=== PATIENT | female | born 1940 | race Caucasian/White ===

== ENCOUNTER 2016-09-16 06:18 | Inpatient (IN) | payer OTHER ==
--- NOTE | 2016-09-08 09:51 | GHP ---
[f rep st] PREOP HISTORY AND PHYSICAL DATE OF ADMISSION: 09/16/2016 PROBLEM: Left hip arthritis. HISTORY OF PRESENT ILLNESS: The patient is a 75-year-old woman with bilateral severe degenerative a rthritis. The left hip is more painful than the right. She has had progressive symptoms for 15 yea rs. In March 2016, she had stem cell injections into her hips and knees. That was helpful for h er hips for 3-4 months. She is having daily pain and night pain. It is painful to walk. She is tr elysia to exercise 3 times a week. Her hips are stiff and sore after sitting. She is using diclofena c. She has a lot of trouble putting on her shoes and socks. She has tried physical therapy for 1-1 /2 years, but it did not help. She is admitted for left total hip arthroplasty. She is planning on doing her right total hip later this year. PAST MEDICAL HISTORY: Overall, she is in excellent general health. Three years ago, she was worked up for premature atrial contractions. She is not having any current problems with that. No histor y of DVT, hepatitis, or sleep apnea. She has never had a serious previous MRSA infection. CURRENT MEDICATIONS: Diclofenac. She will stop that in preparation for her total hip replacement. DRUG ALLERGIES: She has a severe reaction to sulfa. METAL ALLERGY: None. LATEX ALLERGY: None. SOCIAL HISTORY: The patient is . She does not smoke cigarettes and rarely drinks alcohol. She is retired. She does not have any other artificial joints. FAMILY HISTORY: Positive for cancer. PHYSICAL EXAMINATION: GENERAL: She is a healthy-appearing woman. Height 5 feet 6 inches, weight 1 48 pounds, BMI 23.8. EYES: She has had bilateral cataract surgery with lens implants. The pupils are round and reactive. MOUTH: Good oral hygiene. No loose teeth. CHEST: Clear. HEART: Regula r rhythm. No murmurs. No arrhythmia. EXTREMITIES: Pertinent findings are limited to her hips. S he has full extension and about 60 degrees of flexion. There is no rotation or abduction. IMAGING: Her films show very severe degenerative arthritis of both hips. She is [id number]. She has extensive osteophyte formation. IMPRESSION ON ADMISSION: Bilateral hip degenerative arthritis. She is prepared for a left total hi p arthroplasty. The surgery has been described to her, including the risks, complications, expectations, and recover y time. I have discussed with her the risk of dislocation, leg length inequality, infection, and sc iatic nerve injury. I have advised her that if I lengthen her on the first hip, I will make up that length when I do her second hip. All her questions have been answered, and she consents to surgery . Copy requested to: [facility] /[id number]/MODL
[~2016-09-16 06:18] MED LIST: ACETAMINOPHEN 325 MG TAB PO ONE; CEFAZOLIN 2 GM/DEXTR 100 ML IV ONE; CHLORHEXIDINE GLUC HIBICLENS 118 ML BTL TP ONE; DEXAMETHASONE 4 MG/ML VIAL IVP ONE; FAMOTIDINE 20 MG TAB PO ONE; NS IV ONE; POVIDONE-IODINE 20 ML in SODIUM CL IRRIG SOLUTION 500 ML IRR ONE; ROPI/epiNEPH/KETOROLAC JOINT COCKTAIL IU ONE; TRANEXAMIC ACID IV ONE
[2016-09-16] MEDS ORDERED: FAMOTIDINE 20 MG TAB ONE (06:51)
[2016-09-16] MEDS ORDERED: CEFAZOLIN 2 GM/DEXTROSE/100 ML BAG IV ONE (07:01)
[2016-09-16] MEDS ORDERED: LIDOCAINE 1% 2 ML INJ ONE (07:02)
[2016-09-16] MEDS ORDERED: ceFAZolin 1 GM/5 ML SYR ONE (07:28)
[2016-09-16] MEDS ORDERED: fentaNYL 100 MCG/2 ML INJ ONE (07:30)
[2016-09-16] MEDS ORDERED: LIDOCAINE 2% 5 ML SDV ONE (07:31)
[2016-09-16] MEDS ORDERED: PROPOFOL/EMULSION 500 MG/50 ML BOTTLE IV ONE ×2 (07:31→09:17)
[2016-09-16] MEDS ORDERED: BUPIVACAINE 0.5% 30 ML SDV ONE (08:20)
[2016-09-16] MEDS ORDERED: PHENYLEPHRINE HCL 100 MCG/ML SYR ONE (09:39)
[2016-09-16] MEDS ORDERED: DIPHENOXYLATE/ATROPINE LOMOTIL 1 TAB PO PRN (10:16)
[2016-09-16] MEDS ORDERED: PROMETHAZINE HCL 25 MG SUPPR PR PRN (10:16)
[2016-09-16] MEDS ORDERED: NS 500 ML IV PRN (10:16)
[2016-09-16] MEDS ORDERED: ONDANSETRON 4 MG/2 ML VIAL IVP PRN (10:16)
[2016-09-16] MEDS ORDERED: traMADol 50 MG TAB PO PRN (10:16)
[2016-09-16] MEDS ORDERED: BISACODYL 10 MG SUPP PR PRN (10:16)
[2016-09-16] MEDS ORDERED: CYCLOBENZAPRINE 10 MG TAB PO PRN (10:16)
[2016-09-16] MEDS ORDERED: POLYETHYLENE GLYCOL 3350 17 GM PKT PO PRN (10:16)
[2016-09-16] MEDS ORDERED: PHARMACY PAIN CONSULT 1 EA MISC PRN (10:16)
[2016-09-16] MEDS ORDERED: diphenhydrAMINE 25 MG CAP PO PRN (10:16)
[2016-09-16] MEDS ORDERED: LACTULOSE 20 GM/30 ML UDCUP PO PRN (10:16)
[2016-09-16] MEDS ORDERED: MAGNESIUM HYDROXIDE 30 ML UDCUP PO PRN (10:16)
[2016-09-16] MEDS ORDERED: ONDANSETRON DISINTEGRATING 4 MG TAB PO PRN (10:16)
[2016-09-16] MEDS ORDERED: TEMAZEPAM 15 MG CAP PO PRN (10:16)
[2016-09-16] MEDS ORDERED: oxyCODONE IR 5 MG TAB PO PRN (10:16)
[2016-09-16] MEDS ORDERED: METOCLOPRAMIDE 10 MG/2 ML VIAL IVP PRN (10:16)
--- NOTE | 2016-09-16 10:17 | POSTOPPROG ---
Post Op Note Date of Operation: 09/16/16 Surgeon: Sherwin Han Shadow Graph Weight Operator: Dana Anesthesiologist: Zoë Anesthesia: IV Sedation, Spinal Post-op Diagnosis: left hip arthritis Procedure: left ZOË Inf/Abcess present in the surg proc area at time of surgery?: No EBL: 100-500
[2016-09-16] MEDS ORDERED: LR 1,000 ML IV SCH (10:30)
--- NOTE | 2016-09-16 11:06 | GOP ---
[f rep st] OPERATIVE REPORT DATE OF OPERATION: 09/16/2016 SURGEON: Sherwin Han MD INTERNSHIP: Ruiz Ch and Jose David Suazo. ANESTHESIA: A combination of Marcaine, spinal and IV sedation by Dr. Jono Camp. PREOPERATIVE DIAGNOSIS: Left hip severe degenerative arthritis. POSTOPERATIVE DIAGNOSIS: Left hip severe degenerative arthritis. PROCEDURE PERFORMED: FINDINGS: DESCRIPTION OF PROCEDURE: The patient was given 2 g of preoperative IV Ancef within 60 minutes of s urgery. She also received IV tranexamic acid at a dose of 20 mg/kg. She was placed on the [facility] g room table and given spinal anesthesia with Marcaine by Dr. Camp. She was then placed supine and given IV sedation. A Madsen catheter was not used. She wore a BHAVIK stocking and SCD on the nonopera tive leg. She was rolled to the right lateral decubitus position. The position was secured with e pegboard table attachment. An axillary roll was used and all pressure points were carefully padde d. I was careful to lock her pelvis in a rigid vertical position. Her perineum was isolated with p last adhesive drapes. The left hip and left lower extremity were prepped with ChloraPrep. They w ere draped free using sterile sheets, stockinette, and Ioban plastic drapes. The World Health Organization time-out was performed to verify the correct surgical side and site, a nd the correct patient identity. The Nikolai time-out was also performed. I made a 4-5 inch straight oblique posterolateral hip skin incision. This was a modified direct sup erior approach. Subcutaneous tissues were sharply divided and hemostasis was obtained using electro cautery. I split the very proximal portion of the fascia tamar along the axis of its fibers. I then curved posteriorly and proximally and split the fascia of the gluteus phu and bluntly split the muscle fibers in line with the orientation. A Charnley self-retaining retractor was inserted. Her sciatic nerve was located, partially exposed and protected throughout the procedure. The external rotators and the posterior hip capsule were divided as separate layers at the base of the femoral ne ck, tagged and reflected posteriorly. A smooth 8-inch Steinmann pin was inserted vertically into th e ilium superior to the acetabulum. An 8-inch drill bit was inserted vertically into the greater tr ochanter and parallel to the first pin. The distance between the 2 was measured for leg length cm cifuentes. Her femoral head was dislocated posteriorly. She had very severe degenerative changes in th e hip joint. Her femoral neck was osteotomized at the appropriate level and inclination. I was careful to preserve all the posterior capsule and most of the anterior capsule. The remnant o f her damaged labrum was excised. I prepared the femur first. This allowed me to enterprise mobility architect the amount of natural femoral neck anteversion . This, in turn, allowed me to later determine the correct amount of cup anteversion. She only had about 10 degrees of natural femoral neck anteversion. The canal was opened first laterally with a box chisel. I then reamed and broached sequentially up to size 9. The size 9 broach was used as a trial stem. I was careful to lateralize adequately. Appropriate retractors were inserted to expose the acetabulum. The acetabulum was reamed sequential ly up to 53 mm. I inserted a trial acetabular cup. I did a trial reduction with a flush liner and a -2.5 mm neck length with a 36 mm ball. I took a cross-table intraoperative AP pelvis x-ray. I wa s very satisfied with the leg length, as well as the sizing and position of the acetabular component and femoral component. I selected the Terrence Tritanium cluster hole hemispherical shell with an o utside diameter of 54 mm. This was tapped securely into place in the proper degree of inclination a nteversion. I used the transverse acetabular ligament and other acetabular bony landmarks to help m e properly orient the cup. I inserted a 30 mm and a 25 mm supplemental fixation screws. I also ins erted a screw in metal dome hole plug. I performed a series of trial reductions to determine length and stability. I confirmed that the si ze 9 stem with the -2.5 mm neck length with the 36 mm head with the flush trial liner gave me the pr oper combination of appropriate length and good anterior and posterior stability. The flush [place] X3 highly cross-linked polyethylene liner was inserted and tapped securely into place. I chose the Terrence Secur-Fit Max stem and a size 9 with standard offset. This was inserted press-fit and was very tight. I did 1 final trial reduction and confirmed that the -2.5 mm neck length with the 36 mm head was the proper combination. I inserted a [place]rence Biolox Delta ceramic head with an outside di ameter of 36 mm and a neck length of -2.5 mm. The acetabulum was irrigated and cleaned and the hip was reduced 1 final time. She had excellent anterior and posterior stability and appropriate length . I was intentionally lengthening her a small amount. This increased her stability and I am going to be doing her other hip in another 2 months and I will lengthen that a similar amount. 40 mL of the joint anesthetic cocktail were injected into the capsule, the deep musculature and the subcutaneous tissues along the skin edges. The joint was thoroughly irrigated 1 final time with a d ilute Betadine solution. Her sciatic nerve was reinspected and looked unharmed. The external rotat ors and the posterior hip capsule were repaired in separate layers with #2 FiberWire sutures through drill holes in the greater trochanter. This provided a strong posterior capsular and external rota tor repair. I put in a single [id number] #2 FiberWire sutures through her fascia tamar followed by a running #2 barbed Ethicon StrataFix PDO suture. The subcutaneous tissues were closed with a r unning 0 barbed Ethicon Stratafix Monoderm suture. The skin was closed with a running 3-0 barbed Et hicon Stratafix Monoderm subcuticular suture. The skin edges were reapproximated and sealed with De rmabond glue. The wound was covered with a strip of Telfa, and everything was held in place with a piece of clear plastic Tegaderm. A long-leg BHAVIK stocking and SCD were applied to her left lower extremity. She wore a stocking and S CD on the opposite side during the procedure. An abduction pillow was placed between her knees. Klaudia richardson was awakened from anesthesia and rolled to the supine position on her [facility]. She was ta robert to PACU in satisfactory condition. There were no recognized intraoperative complications. The estimated blood loss was about 300 mL. The sponge and needle count were correct on 2 occasions. I used a [place] Tritanium hemispherical press-fit cluster hole acetabular shell with an outside jonah meter of 54 mm. I used a 25 mm and a 30 mm supplemental fixation screws. The liner was a [place] X 3 flush highly cross-linked liner with an inside diameter of 36 mm. The femoral component was a sta ndard offset [place] Secur-Fit Max stem and a size 9 and press-fit. The femoral head was a [place] Biolox Delta ceramic head with a -2.5 mm neck length and a 36 mm outside diameter. Ruiz Ch and Jose David Suazo acted as surgical assistants. Their assistance was a anselmo bee. OPERATION PERFORMED: 09/16/2016: A left total hip arthroplasty, ceramic femoral head on highly microsoft solutions architect ss-linked polyethylene cup liner. Copy requested to: [facility] /[id number]/MODL
[2016-09-16] MEDS: ACETAMINOPHEN 325 MG TAB PO SCH ×2 (12:20→21:51)
[2016-09-16] MEDS: KETOROLAC 30 MG/1 ML SDV IVP PRN (15:02)
[2016-09-16] MEDS: ceFAZolin 2 GM/DEXTROSE 100 ML IV SCH (15:39)
[2016-09-16] MEDS: TRANEXAMIC ACID 650 MG TAB PO SCH (15:39)
[2016-09-16] MEDS: ASPIRIN 325 MG TAB PO SCH (21:55)
[2016-09-16] MEDS: FAMOTIDINE 20 MG TAB PO SCH (21:55)
[2016-09-16] MEDS: SENNOSIDES/DOCUSATE SODIUM TAB PO SCH (21:55)
[2016-09-16 23:45] VITALS: RESP 16
[2016-09-17] MEDS: ceFAZolin 2 GM/DEXTROSE 100 ML IV SCH (00:01)
[2016-09-17] MEDS: KETOROLAC 30 MG/1 ML SDV IVP PRN ×2 (01:07→08:52)
[2016-09-17 03:42] VITALS: TEMP 97.9
[2016-09-17 05:19] LABS: HEMATOCRIT 35.5 % (38.0-47.0); HEMOGLOBIN 12.2 g/dL (12.6-16.3)
[2016-09-17] MEDS: ACETAMINOPHEN 325 MG TAB PO SCH ×2 (06:08)
[2016-09-17 08:07] VITALS: BP 152/79; PULSE 79; O2SAT 95
[2016-09-17] MEDS: SENNOSIDES/DOCUSATE SODIUM TAB PO SCH (08:58)
[2016-09-17] MEDS: FAMOTIDINE 20 MG TAB PO SCH (08:59)
[2016-09-17] MEDS: ASPIRIN 325 MG TAB PO SCH (08:59)
[2016-09-17] MEDS: TRANEXAMIC ACID 650 MG TAB PO SCH ×2 (08:59)
[2016-09-17] MEDS ORDERED: CALCIUM CARB W/VIT D 500 MG TAB PO SCH (09:00)
[2016-09-17] MEDS ORDERED: FERROUS SULFATE 140 MG TAB.ER PO SCH (09:00)
[2016-09-17] MEDS ORDERED: CALCIUM CITRATE PO SCH (09:00)
[2016-09-17] MEDS ORDERED: Herbals/Supplements -Info Only PO SCH (09:00)
[2016-09-17] MEDS ORDERED: VIT D PO SCH (09:00)
[2016-09-17] MEDS ORDERED: CYANO/VITAMIN B12 1000 MCG TAB PO SCH (09:00)
[2016-09-17] MEDS ORDERED: CHOLECALCIFEROL VIT D3 2,000 UNITS TAB/CAP PO SCH (09:00)
--- NOTE | 2016-09-17 09:51 | SOAPPROG ---
SOAP Progress Note Assessment/Plan: Assessment: Afebrile. Awake and alert. Has been walking in [place] and has done stairs. Voiding well. Dsg is dry. H/H is good. Sciatic nerve intact. Films look good. Plan: DC today. 09/17/16 09:50 Objective: Vital Signs Temp Pulse Resp BP Pulse Ox 36.6 C 79 16 152/79 H 95 09/17/16 03:41 09/17/16 08:06 09/17/16 08:06 09/17/16 08:06 09/17/16 08:06 Laboratory Results 09/17/16 04:56 09/16/16 09/17/16 09/18/16 05:59 05:59 05:59 Intake Total 1540 Output Total 3400 Balance -1860 ICD10 Worksheet Patient Problems: Problems Problem Status Onset Osteoarthritis of left hip Acute
--- NOTE | 2016-09-17 10:18 | GDS ---
[f rep st] DISCHARGE SUMMARY ADMISSION DIAGNOSIS: Left hip arthritis. DISCHARGE DIAGNOSIS: Left hip arthritis. NAME OF PROCEDURE: 09/16/2016, a left total hip arthroplasty, ceramic femoral head on highly cross- linked polyethylene cup liner. POSTOPERATIVE COMPLICATIONS: None. CONDITION ON DISCHARGE: Improved. DESCRIPTION OF HOSPITAL COURSE: The patient was admitted to the hospital on the morning of surgery. Her admission CBC was normal. The same day, under a combination of Marcaine, spinal and IV sedati on, she underwent a left total hip arthroplasty. Postoperatively, she was treated with multimodal D VT prophylaxis including aspirin and early mobilization. On the first postoperative day, her hemogl obin and hematocrit were 12.2 and 35.5. She did not require any transfused blood. She was seen by Physical Therapy and made rapid progress with ambulation and stairs. By the time of discharge, she was afebrile, her wound was clean and dry, and she was independent and walking with a walker. DISPOSITION: The patient discharged to her home. She may progress to full weightbearing on the lef t as tolerated. Continue BHAVIK stockings for 1 week. Continue an abduction pillow in bed for 3 weeks . Continue aspirin 325 mg p.o. daily for 21 days. She has prescriptions for oxycodone and tramadol for pain control. I will see her back in the office on October 06, 2016. If there are any problems, s he is to call me at the office. Copy requested to: [facility] #: [id number]
== END 2016-09-17 11:30 | disposition home or self-care (01) | DRG 470 ==
LOC: F3N 06:18
PROVIDERS: ADMIT Orthopaedic Surgery; ATTEND Orthopaedic Surgery
PROC: 0SRB04Z Replacement of Left Hip Joint with Ceramic on Polyethylene Synthetic Substitute, Open Approach (ICD-10-PCS; principal; 2016-09-16 08:30)
DX: M16.12 Unilateral primary osteoarthritis, left hip (principal)
CPT/HCPCS: 97110-GP; 97116-GP; 97161-GP; 97165-GO; 97530-GP; C1713; G8978-GP-CJ; G8979-GP-CI; G8980-GP-CI; G8987-GO-CI; G8988-GO-CI; G8989-GO-CI; J0171; J0690; J1100; J1885; J2370; J2704; J2795; J3010

== ENCOUNTER 2016-10-17 10:30 | Observation (INO) | payer OTHER ==
--- NOTE | 2016-10-17 10:52 | CPEKG ---
Heart Rate: 92 RR Interval: 652 P-R Interval: 132 QRSD Interval: 76 QT Interval: 388 QTC Interval: 481 P Trenton: 63 QRS [place]on: 49 T Wave [place]on: -32 EKG Severity - ABNORMAL ECG - EKG Impression: SINUS RHYTHM EKG Impression: NONSPECIFIC T ABNORMALITIES, INFERIOR LEADS Electronically Signed By: Ajit Alcaraz 17-Oct-2016 15:14:51
[2016-10-17] MEDS ORDERED: NS 1,000 ML IV ONE ×3 (12:53→15:29)
--- NOTE | 2016-10-17 12:59 | EDPHY ---
H & P Time Seen by Provider: 10/17/16 11:50 HPI/ROS: HPI Syncope. 76-year-old female by ambulance. This patient was doing water aerobics. She reports that she had a recent left hip replacement. She reports she normally does water aerobics several times a week. She reports that last week she did her 1st water aerobics class after her hip surgery. She reports that yesterday she had some brief intermittent episodes of lightheadedness. She reports that she was at water aerobics, in the pool when she developed a sensation of lightheadedness. She got out of the pool, she went to the locker room, she had an episode of profuse watery diarrhea. She then was in the locker room and her symptoms worsen. She had 2 syncopal episodes while in in a locker room, the 2nd episode EMS was called the 1st episode a bystander witnessed this and she felt embarrassed until the bystander that she just slipped and fell. No associated chest pain, no associated shortness of breath, no palpitations, no headache. She denies any weakness or loss of sensation in her extremities. No other complaints. Is feeling better now. ROS: Constitutional: No fever, no chills. As above. Eyes: No discharge. No changes in vision. ENT: No sore throat. No nasal congestion or rhinorrhea. Respiratory: No cough. No shortness of breath. Cardiac: No chest pain, no palpitations. Gastrointestinal: No abdominal pain, no vomiting, no diarrhea. Genitourinary: No hematuria. No dysuria or increased frequency with urination. Musculoskeletal: No back pain. No neck pain. No myalgias or arthralgias. Skin: No rashes. Neurological: No headache. No focal weakness or altered sensation. Past medical history: History of PACs which has been resolved for some time. As above. Social history: Here with her . Nonsmoker. No alcohol. Physical Exam: General Appearance: Alert, no distress. This patient is responding to questions appropriately and in full sentences. This patient appears well- hydrated and well-nourished. Eyes: Pupils equal and round no pallor or injection. No lid edema, erythema or injection. No nystagmus. ENT, Mouth: Mucous membranes are moist. The pharyngeal tissues are unremarkable. No edema or swelling. No asymmetry suggestive of abscess. No erythema or exudates. No tongue lacerations or abrasions. Respiratory: There are no retractions, lungs are clear to auscultation with good air movement bilaterally. Cardiovascular: Regular rate and rhythm. No murmur. Gastrointestinal: Abdomen is soft and nontender, no masses, bowel sounds normal. No focal tenderness at McBurney's point. No Vásquez sign. Neurological: Motor sensory function is grossly intact. Cranial nerves are normal. Gait is normal. Skin: Warm and dry, no rashes. Musculoskeletal: Neck is supple and nontender. Extremities are symmetrical. All joints range without pain or impingement. Psychiatric: No agitation. No depression. Database: EKG: EKG time is 10:50 a.m.; EKG shows a narrow complex normal sinus rhythm with a ventricular rate of 92. The KS, QRS, QT intervals are within normal limits. There are no ST-T wave changes indicative of ischemic or injury pattern. No evidence of right heart strain. No evidence of WPW, Brugada syndrome, hypertrophic cardiomyopathy. Interpreted by me. Imaging: Procedures: Emergency department course: IV was placed. She was placed on a iron melter. She was started on IV normal saline with 1 L to be given over the next hour. EKG performed. Vital signs reviewed and are normal. 12:55 p.m., patient re-evaluated. Resting comfortably at this time. Up and ambulatory. States she feels slightly lightheaded when she stands up. Vital signs reviewed and are normal. 2:00 p.m., patient re-evaluated. Resting comfortably at this time. She remains asymptomatic. Diagnostic workup discussed with her and her . Plan for admission for observation reviewed. They are in agreement. All of their questions were answered. 2:05 p.m., case discussed with hospitalist. Patient accepted for telemetry observation admission. Patient admitted to Dr. Xenia Quinones of the hospitalist service. Patient admitted in stable condition. Differential Diagnosis: The differential diagnosis on this patient includes but is not limited to dehydration, enteritis, arrhythmia, noncardiac syncope. Acute coronary syndrome , pulmonary embolism, subarachnoid hemorrhage, CVA unlikely. This represents a partial list of diagnoses considered. These considerations are based on history , physical exam, past history, reassessment and diagnostic testing. Smoking Status: Never smoked Constitutional: Initial Vital Signs Temperature (C) 36.6 C 10/17/16 10:41 Heart Rate 94 10/17/16 10:41 Respiratory Rate 14 10/17/16 10:41 Blood Pressure 132/79 H 10/17/16 10:41 O2 Sat (%) 94 10/17/16 10:41 O2 Delivery Mode Room Air Allergies/Adverse Reactions: Sulfa (Sulfonamide Antibiotics) Allergy (Severe, Verified 08/19/16 14:06) Anaphylaxis walnut Allergy (Severe, Verified 08/19/16 14:06) Anaphylaxis Home Medications: Medication Instructions Recorded Calcium Citrate W/Vit D [Citracal 2 each PO DAILY 08/19/16 + D] Cholecalciferol Vit D3 [Vitamin D3 2,000 units PO DAILY 08/19/16 2000 units tab (OTC)] Cyanocobalamin [Vitamin B12 (*)] 1,000 mcg PO DAILY 08/19/16 Diclofenac Sodium [Voltaren-XR] 100 mg PO DAILY 08/19/16 Herbals/Supplements -Info Only 1 ea PO DAILY 08/19/16 Acetaminophen [Tylenol 325mg (*)] 650 mg PO Q6HRS #0 tab 09/17/16 Aspirin [Aspirin 325 mg (*)] 325 mg PO DAILY #21 tab 09/17/16 Ferrous Sulfate [Slow Fe 140 MG 140 mg PO DAILY #30 tab.er 09/17/16 (*)] Ondansetron Odt [Zofran Odt 4 mg 4 mg PO Q4HRS PRN #0 tab 09/17/16 (*)] oxyCODONE IR [Oxycodone Ir (*)] 5 - 10 mg PO Q3HRS PRN #0 tab 09/17/16 traMADol [Ultram 50 mg (*)] 50 mg PO Q6HRS PRN #0 tab 09/17/16 Medical Decision Making - Data Points Laboratory Results: Laboratory Results 10/17/16 10:40 10/17/16 10:40 10/17/16 10/17/16 10:40 10:40 WBC 6.87 10^3/uL 10^3/uL (3.80-9.50) RBC 4.97 10^6/uL 10^6/uL (4.18-5.33) Hgb 15.3 g/dL g/dL (12.6-16.3) Hct 47.0 % % (38.0-47.0) MCV 94.6 fL fL (81.5-99.8) MCH 30.8 pg pg (27.9-34.1) MCHC 32.6 g/dL g/dL (32.4-36.7) RDW 14.2 % % (11.5-15.2) Plt Count 250 10^3/uL 10^3/uL (150-400) MPV 11.7 fL fL (8.7-11.7) Neut % (Auto) 51.0 % % (39.3-74.2) Lymph % (Auto) 43.5 % % (15.0-45.0) [place] % (Auto) 3.6 % L % (4.5-13.0) Eos % (Auto) 1.3 % % (0.6-7.6) Baso % (Auto) 0.3 % % (0.3-1.7) Nucleat RBC Rel Count 0.0 % % (0.0-0.2) Absolute Neuts (auto) 3.50 10^3/uL 10^3/uL (1.70-6.50) Absolute Lymphs (auto) 2.99 10^3/uL 10^3/uL (1.00-3.00) Absolute Monos (auto) 0.25 10^3/uL L 10^3/uL (0.30-0.80) Absolute Eos (auto) 0.09 10^3/uL 10^3/uL (0.03-0.40) Absolute Basos (auto) 0.02 10^3/uL 10^3/uL (0.02-0.10) Absolute Nucleated RBC 0.00 10^3/uL 10^3/uL (0-0.01) Immature Gran % 0.3 % % (0.0-1.1) Immature Gran # 0.02 10^3/uL 10^3/uL (0.00-0.10) Sodium 143 mEq/L mEq/L (134-144) Potassium 3.9 mEq/L mEq/L (3.5-5.2) Chloride 102 mEq/L mEq/L (97-110) Carbon Dioxide 26 mEq/l mEq/l (22-31) Anion Gap 15 mEq/L mEq/L (8-16) BUN 15 mg/dL mg/dL (7-23) Creatinine 0.9 mg/dL mg/dL (0.6-1.0) Estimated GFR > 60 Glucose 137 mg/dL H mg/dL (70-100) Calcium 10.2 mg/dL mg/dL (8.5-10.4) Creatine Kinase 59 IU/L IU/L (0-156) CK-MB (CK-2) Fraction 1.04 ng/mL ng/mL (0-3.19) Troponin I < 0.012 ng/mL ng/mL (0-0.034) Medications Given: Discontinued Medications Sodium Chloride (Ns) 1,000 mls @ 0 mls/hr IV ONCE ONE PRN Reason: Wide Open Stop: 10/17/16 12:54 Last Admin: 10/17/16 12:57 Dose: 1,000 mls Departure - Departure Disposition: [facility] Inpatient Acute Clinical Impression: Syncope Referrals: AISHA REYNOLDS SENIOR MANAGER [Other] - As per Instructions
[2016-10-17 13:02] LABS: % IMMATURE GRANULYOCYTES 0.3 % (0.0-1.1); ABSOLUTE IMMATURE GRANULOCYTES 0.02 10^3/uL (0.00-0.10); ADD DIFF? NO; ADD MORPH? NO; ADD SCAN? NO; ATYPICAL LYMPHOCYTE FLAG 10 (0-99); FRAGMENT RBC FLAG 0 (0-99); HEMOGLOBIN 15.3 g/dL (12.6-16.3); LEFT SHIFT FLG 10 (0-99); LIPEMIA HEMOLYSIS FLAG 80 (0-99); MEAN CELL HEMOGLOBIN 30.8 pg (27.9-34.1); MEAN CELL HEMOGLOBIN CONCENTR. 32.6 g/dL (32.4-36.7); MEAN CELL VOLUME 94.6 fL (81.5-99.8); MEAN PLATELET VOLUME 11.7 fL (8.7-11.7); PLATELET CLUMPS FLAG 0 (0-99); PLATELET COUNT 250 10^3/uL (150-400); RED BLOOD CELL COUNT 4.97 10^6/uL (4.18-5.33); RED CELL DISTRIBUTION WIDTH 14.2 % (11.5-15.2)
[2016-10-17 13:05] LABS: ANION GAP 15 mEq/L (8-16); CALCIUM 10.2 mg/dL (8.5-10.4); CARBON DIOXIDE 26 mEq/l (22-31); CHLORIDE 102 mEq/L (97-110); CREATININE 0.9 mg/dL (0.6-1.0); GLOMERULAR FILTRATION RATE > 60; GLUCOSE 137 mg/dL (70-100); POTASSIUM 3.9 mEq/L (3.5-5.2); SODIUM 143 mEq/L (134-144)
[2016-10-17 13:16] LABS: CREATINE KINASE-MB FRACTION 1.04 ng/mL (0-3.19); TROPONIN I < 0.012 ng/mL (0-0.034)
[2016-10-17] MEDS ORDERED: ACETAMINOPHEN 325 MG TAB PO PRN (14:39)
[2016-10-17] MEDS ORDERED: ONDANSETRON 4 MG/2 ML VIAL IVP PRN (14:39)
[2016-10-17] MEDS ORDERED: ONDANSETRON DISINTEGRATING 4 MG TAB PO PRN (14:39)
--- NOTE | 2016-10-17 15:51 | GHP ---
[f rep st] HISTORY AND PHYSICAL DATE OF ADMISSION: 10/17/2016 CHIEF COMPLAINT: Syncope. HISTORY OF PRESENT ILLNESS: A 76-year-old female, with limited past medical history to arthritis of bilateral hips with a hip replacement on the left on 09/17/2016. Patient has been doing very well postoperatively, and was at her water aerobics class today when she began feeling a little bit dizzy . She got out of the pool, walked into the changing room, had some abdominal discomfort and nausea, took a lactate and then passed a voluminous watery stool, with then complete resolution of her disc omfort and nausea, and then the patient sat down on a bench and . Got up again, was sitti ng, still feeling dizzy, and then had a second syncopal episode, was then transported by EMS to the emergency department. Patient denies any preceding palpitations, chest pain, shortness of breath, v ision changes, headache. Did have the mild nausea and the one large stool that she likens to stool that she has when she inappropriately takes lactose-containing products. Otherwise denies any fever s, denies any blood in her stool or her urine. Denies dysuria, denies any unusual foods, exposures to food allergies or known sick contacts. PAST MEDICAL HISTORY: 1. Bilateral hip arthritis. 2. Status post left hip arthroplasty, 09/17/2016. SOCIAL HISTORY: Negative for tobacco, very rare alcohol, no illicit drugs or marijuana. FAMILY HISTORY: Positive for hip and knee arthritis in her mother. REVIEW OF SYSTEMS: A 10-point review of systems is negative with the exception of that reported in the HPI. PHYSICAL EXAMINATION: VITAL SIGNS: Blood pressure 149/88, heart rate 84, respiratory rate 14, satu rating 97% on room air, 36.6. GENERAL: This is a very healthy-appearing middle-aged female in no a cute distress. HEENT: Notable for dry mucous membranes. Eye exam is negative for any icterus. CA RDIAC: Patient is regular rate and rhythm, a quiet systolic murmur is appreciated. PULMONARY: Zelalem ar to auscultation bilaterally. GASTROINTESTINAL: Positive bowel sounds. ABDOMEN: Soft, nontende r in all 4 quadrants. MUSCULOSKELETAL: Negative for any lower extremity edema. SKIN: Negative fo r any rashes. NEUROLOGIC: She is alert and oriented x3. PSYCHIATRIC: She is pleasant and coopera tive on interview and examination. ADVANCED DIRECTIVES: Patient is full cor, full tube. LABORATORY DATA: Telemetry, which I personally reviewed and interpreted, shows sinus rhythm in the 80s with no premature complexes or abnormalities. White count 6.8, creatinine 0.9. Troponin less than 0.012. EKG, which I personally reviewed and interpreted, shows sinus rhythm, normal axis, normal intervals, with no acute ST-T changes. ASSESSMENT AND PLAN: This is a 76-year-old female presenting with syncope. 1. Acute syncope. Patient does not have prodrome or concerning medical history. My greatest suspi cion is either from micturitional type syncope and/or hypovolemia. We will complete a rule-out this afternoon, monitor the patient on telemetry. I do hear a quiet murmur, we will order a transthorac ic echocardiogram, and a urinalysis to look for both concentration and/or an occult urinary tract in fection. If the patient has normal diagnostic workup, I believe she is safe to discharge with outpa tient followup. She has received 1 L of normal saline in the emergency department and has not urina todd, I will repeat this L, and then allow her to take a normal diet. 2. Status post left hip arthroplasty. The patient's recovery is going very smoothly. She is on Ty lenol only, and has been so for over 3 weeks. I do not suspect the pain medications are contributin g to her presentation, continue encouraging her ambulation per her preceding instructions by her pamela schulten. Prophylaxis with Lovenox. DIET: Regular. DISPOSITION: I expect a less than 2 midnight stay since the patient has a negative diagnostic lester p. I discussed the case with the emergency room physician. Patient will be triaged to the E[facility]U for syn cope. /[id number]/MODL
[2016-10-17 16:20] LABS: COLOR YELLOW; LEUKOCYTE ESTERASE,URINE NEGATIVE (NEGATIVE); NITRITE,URINE NEGATIVE (NEGATIVE)
[2016-10-17] MEDS ORDERED: ACETAMINOPHEN 325 MG TAB PO SCH (18:00)
[2016-10-17] MEDS: ACETAMINOPHEN 325 MG TAB PO PRN (20:11)
[2016-10-18] MEDS: ACETAMINOPHEN 325 MG TAB PO PRN ×3 (00:19→11:05)
[2016-10-18 05:58] LABS: ANION GAP 7 mEq/L (8-16); CALCIUM 8.9 mg/dL (8.5-10.4); CARBON DIOXIDE 24 mEq/l (22-31); CHLORIDE 113 mEq/L (97-110); CREATININE 0.6 mg/dL (0.6-1.0); GLOMERULAR FILTRATION RATE > 60; GLUCOSE 84 mg/dL (70-100); POTASSIUM 3.7 mEq/L (3.5-5.2); SODIUM 144 mEq/L (134-144)
[2016-10-18] MEDS ORDERED: CHOLECALCIFEROL VIT D3 2,000 UNITS TAB/CAP PO SCH (09:00)
[2016-10-18] MEDS ORDERED: CYANO/VITAMIN B12 1000 MCG TAB PO SCH (09:00)
[2016-10-18] MEDS ORDERED: Herbals/Supplements -Info Only PO SCH (09:00)
[2016-10-18] MEDS: ENOXAPARIN 40 MG/0.4 ML SYR SC SCH ×2 (11:05→11:44)
[2016-10-18 11:34] VITALS: BP 128/78; PULSE 74; RESP 16; TEMP 98.4; O2SAT 92
--- NOTE | 2016-10-18 12:19 | ECHO ---
[id number] + + [id number] : : [place] [id number] : : [phone] + + Adult Echocardiographic Report + -------+ :Name: Chanel MALDONADO Date: 10/18/2016 10:18 AM BP: 136/90 mmH g : : Hospital Admission Number: [id number] Locati on: 142: :: 1940 Gender: Female Height: 66 in : :Age: 76 yrs Race: WH Weight: 146 lb : :Reason For Study: syncope : : BSA: 1.7 meter s2 : :History: syncope : + -------+ MMode/2D Measurements \T\ Calculations IVSd: 0.85 cm RVDd: 2.8 cm FS: 26.8 % Ao root diam: LVPWd: 0.94 cm LVIDd: 4.3 cm EDV(Teich): 2.4 cm LVIDs: 3.1 cm 82.6 ml LA dimension: ESV(Teich): 3.1 cm 39.1 ml EF(Teich): 52.6 % LVLd ap4: 8.1 cm SV(MOD-sp4): EDV(MOD-sp4): 58.0 ml 109.0 ml LVLs ap4: 7.1 cm ESV(MOD-sp4): 51.0 ml EF(MOD-sp4): 53.2 % Normal Measurement Values: + + :LVIDd (3.5-5.7cm) IVSd (0.6-1.1cm) LVPWd (0.6-1.1cm) Aortic Root (2.0-3.7cm)Left Atrium (1.5-4.0cm): :LV Vol(d) (76-115ml) LV Vol(s) (29-48ml) Ejec Fraction (50-65%)PV Marcell (0.6- 1.2m/s) TV Marcell (0.4-1.0m/s) : :MV E Marcell (0.8-1.0m/s)MV A Marcell (0.3-1.0m/s)LVOT Marcell (0.7-1.2m/s) Asc Ao Marcell ( 0.9-1.8m/s) : + + Doppler Measurements \T\ Calculations MV E max marcell: Ao V2 max: LV V1 max: PA V2 max: 76.5 cm/sec 129.0 cm/sec 93.8 cm/sec 86.9 cm/sec MV A max marcell: Ao max P.7 mmHgLV V1 max PG: PA max P.3 cm/sec 3.5 mmHg 3.0 mmHg MV E/A: 0.82 TR max marcell: 220.0 cm/sec TR max P.4 mmHg RAP systole: 10.0 mmHg RVSP(TR): 29.4 mmHg Left Ventricle The left ventricle is normal in size and function. There is normal left ventricular wall thickness. Ejection Fraction = 55-60%. There is Doppler evidence for diastolic dysfunction. No regional wall motion abnormalities noted. Right Ventricle The right ventricle is normal in size and function. Atria The left atrial size is normal. Right atrial size is normal. A dilated inferior vena cava suggests increased right atrial pressure. Mitral Valve The mitral valve is normal in structure and function. There is no mitral valve stenosis. There is mild mitral regurgitation. Tricuspid Valve The tricuspid valve is normal in structure and function. There is no tricuspid stenosis. There is mild tricuspid regurgitation. Right ventricular systolic pressure is 30mmHg. Aortic Valve The aortic valve is trileaflet. There is no aortic stenosis. There is no aortic insufficiency. Pulmonic Valve The pulmonic valve is not well visualized. Great Vessels The aortic root is normal size. Pericardium/Pleural There is no pericardial effusion. Conclusion A two-dimensional transthoracic echocardiogram with M-mode and Doppler was performed. The left ventricle is normal in size and function. Normal wall motion. Ejection Fraction = 55-60%. Grade I diastolic dysfunction. Normal appearing valves. There is mild mitral regurgitation. There is mild tricuspid regurgitation. Right ventricular systolic pressure is 30mmHg. Final Reading Physician: Frederick Pemberton signed on 10/18/2016 12:18 PM Ordering Physician: Xenia Quinones Performed By: Nova Noel
[2016-10-18] MEDS ORDERED: IOPAMIDOL (ISOVUE 370) 100 ML BTL IV ONE (12:42)
--- NOTE | 2016-10-19 06:10 | GDS ---
[f rep st] DISCHARGE SUMMARY DISCHARGE DIAGNOSES: 1. Syncope, which is likely related to vagal event versus orthostasis. 2. Status post left hip arthroplasty. IMAGING STUDIES/PROCEDURES: Echocardiogram October 18, 2016 showed a normal wall motion with an ejectio n fraction of 55%-60%. Grade 1 diastolic dysfunction. Normal valves. Mild mitral regurgitation. The right ventricular systolic pressure of 32. HISTORY: For details, please see dictated history and physical dated October 17, 2016. In brief, the luis m wall is a 76-year-old female who is 3 weeks postop from a total hip arthroplasty who presents to [facility] emergency department after syncopal event. Her syncope occurred after swimming in the pool. She developed some abdominal discomfort, nausea, then had a copious watery stool. After this occurred, she passed out. She tried to get up but again felt dizzy and had a 2nd syncopal episode. She is a dmitted to the hospital for further management. HOSPITAL COURSE: Patient is admitted to the observation unit. She received a total of 3 L of kristian l saline. Orthostatics were negative prior to discharge. She was monitored on telemetry and was no todd to have some very brief runs of what looks like paroxysmal atrial tachycardia. I do not think t was a source of syncope. She does report a history of atrial tachycardia for which she was meri todd in the past. An echo was ordered and shows normal valves and no other source of syncope. A D-d don was markedly elevated at 8.9, CT angiogram was negative for pulmonary embolism. DISPOSITION: Patient is discharged home in stable condition with instructions to follow up with her cashier office for possible Holter monitor. FOLLOW UP: 1. Dr. Barahona her outpatient cashier office. DISCHARGE MEDICATIONS: Please see [employer] for complete updated outpatient medication list. There are no new medications on discharge. /[id number]/MODL
== END 2016-10-18 17:30 | disposition home or self-care (01) ==
LOC: EDUNIT# → F1N 16:28
PROVIDERS: ADMIT Hospitalist; ATTEND Hospitalist
DX: R55 Syncope and collapse (principal); I34.0 Nonrheumatic mitral (valve) insufficiency; I48.0 Paroxysmal atrial fibrillation; R01.1 Cardiac murmur, unspecified; Z96.642 Presence of left artificial hip joint; Z86.79 Personal history of other diseases of the circulatory system
CPT/HCPCS: 71275; 93005; 93306; 96360; 99285; G0378; J1650; Q9967

== ENCOUNTER 2016-11-05 07:48 | Inpatient (IN) | payer OTHER ==
--- NOTE | 2016-11-03 09:32 | GHP ---
[f rep st] PREOP HISTORY AND PHYSICAL DATE OF ADMISSION: 11/05/2016 PROBLEM: Right hip arthritis. HISTORY OF PRESENT ILLNESS: The patient is a 76-year-old woman with a history of severe bilateral hip degenerative arthritis. She has had progressive symptoms for the past 15 years. In March 2016, she had stem cells injected into both her hips and her knees. That was helpful for a few months. She is having daily pain and night pain. It is painful to walk. Her hips are stiff and sore after sitting. She has used diclofenac in the past. She has trouble putting on her shoes and socks. She has tried physical therapy but it did not help. She underwent a left total hip arthroplasty on September 16, 2016, with an excellent result. She is admitted at this time for a right total hip arthroplasty. PAST MEDICAL HISTORY: Overall, she is in excellent health. Three years ago, she was worked up for premature atrial contractions. Two weeks ago, she had a syncopal episode. She was hospitalized and again worked up. It was concluded that she had a syncope from dehydration. She had a cardiac stress test which was negative. No history of DVT, hepatitis, or sleep apnea. CURRENT MEDICATIONS: None. DRUG ALLERGIES: She had a severe reaction to sulfa. Metal allergy: None. Latex allergy: None. SOCIAL HISTORY: The patient is . She does not smoke cigarettes and rarely drinks alcohol. She is retired. FAMILY HISTORY: Positive for cancer. PHYSICAL EXAMINATION: GENERAL: She is a healthy-appearing woman. Height 5 feet 6 inches. Weight 148 pounds. BMI 23.8. EYES: Conjunctivae and sclerae are clear. She has had bilateral cataract surgery with lens implants. MOUTH: Good oral hygiene. No loose teeth. CHEST: Clear. HEART: Regular rhythm. No murmurs. No arrhythmia. EXTREMITIES: Pertinent findings are limited to her right hip. She has full hip extension and 60 degrees of flexion. No rotation or abduction. IMAGING: Her films show severe degenerative arthritis in her right hip. She is bone on bone. Extensive osteophyte formation is present. Her left total hip arthroplasty looks excellent. IMPRESSION ON ADMISSION: 1. Right hip advanced degenerative arthritis. 2. Seven weeks status post successful left total hip arthroplasty. 3. Recent syncopal episode with no cardiac origin identified. PLAN: She will undergo a right total hip arthroplasty. The surgery has been described to her, including the risks, complications, expectations, and recovery time. I have discussed with her the issues of leg length inequality, dislocation, infection, and sciatic nerve injury. I have also advised her that with bilateral procedures there can be mild [id number] differences in the recovery and in the final result. All her questions have been answered, and she consents to surgery. /[id number]/MODL MTDD
[~2016-11-05 07:48] MED LIST changes: -CHLORHEXIDINE GLUC HIBICLENS 118 ML BTL TP ONE; +ROPI/epINEPH/KETOROLAC IU ONE; -ROPI/epiNEPH/KETOROLAC JOINT COCKTAIL IU ONE
[2016-11-05] MEDS ORDERED: ceFAZolin 1 GM/5 ML SYR ONE (07:57)
[2016-11-05] MEDS ORDERED: LIDOCAINE 1% 5 ML SDV ID PRN (08:25)
[2016-11-05] MEDS ORDERED: LR 1,000 ML IV ONE (08:25)
[2016-11-05] MEDS ORDERED: CEFAZOLIN 2 GM/DEXTROSE/100 ML BAG IV ONE (08:50)
[2016-11-05] MEDS ORDERED: ACETAMINOPHEN 325 MG TAB ONE (08:50)
[2016-11-05] MEDS ORDERED: FAMOTIDINE 20 MG TAB ONE (08:50)
[2016-11-05] MEDS ORDERED: DEXAMETHASONE 4 MG/ML VIAL ONE (08:50)
--- NOTE | 2016-11-05 09:00 | PDHPUP ---
History & Physical Update H&P update statement: This history and physical update is based on an assessment of the patient which was completed after admission or registration (within 24 hours), but prior to the surgery/procedure. H&P update: H&P reviewed & patient examined, no change in patient's condition since H&P completed
--- NOTE | 2016-11-05 09:36 | PDANEPAE ---
ANE History of Present Illness Osteoarthritis ANE Past Medical History - Cardiovascular History Hx Hypertension: No Hx Arrhythmias: No Hx Chest Pain: No Hx Coronary Artery / Peripheral Vascular Disease: No Hx CHF / Valvular Disease: No Hx Palpitations: No - Pulmonary History Hx COPD: No Hx Asthma/Reactive Airway Disease: No Hx Recent Upper Respiratory Infection: No Hx Oxygen in Use at Home: No - Neurologic History Hx Cerebrovascular Accident: No Hx Seizures: No Hx Dementia: No - Endocrine History Hx Diabetes: No - Renal History Hx Renal Disorders: No - Liver History Hx Hepatic Disorders: No - Neurological & Psychiatric Hx Hx Neurological and Psychiatric Disorders: No - Congenital Disorder History Hx Congenital Disorders: No - GI History Hx Gastrointestinal Disorders: No - Chronic Pain History Chronic Pain: Yes (RIGHT HIP) ANE Review of Systems - Exercise capacity METS (RN): 4 METS - Systems Neurological: Reports: other (Fainted while exercising a couple of weeks ago. Negative workup--attributed to dehydration.) ANE Patient History - Allergies Allergies/Adverse Reactions: Sulfa (Sulfonamide Antibiotics) Allergy (Severe, Verified 08/19/16 14:06) Anaphylaxis walnut Allergy (Severe, Verified 08/19/16 14:06) Anaphylaxis - Home Medications Home Medications: Cholecalciferol Vit D3 [Vitamin D3 2000 units tab (OTC)] 2,000 units PO DAILY [Last Taken 10/29/16] Cyanocobalamin [Vitamin B12 (*)] 1,000 mcg PO DAILY 08/19/16 [Last Taken ] Acetaminophen [Tylenol 325mg (*)] 325 mg PO 5XD 10/17/16 [Last Taken 11/05/16 06 :30] Herbals/Supplements -Info Only 1 ea PO DAILY 10/17/16 [Last Taken 10/29/16] - NPO status NPO Since - Liquids (Date): 11/04/16 NPO Since - Liquids (Time): 22:00 NPO Since - Solids (Date): 11/04/16 NPO Since - Solids (Time): 19:00 - Smoking Hx Smoking Status: Never smoked - Family Anes Hx Family Hx Anesthesia Complications: NONE ANE Labs/Vital Signs - Vital Signs Blood Pressure: 177/90 Heart Rate: 80 Respiratory Rate: 16 O2 Sat (%): 98 Height: 167.64 cm Weight: 66.315 kg
[2016-11-05] MEDS ORDERED: fentaNYL 100 MCG/2 ML INJ ONE ×3 (09:41→12:26)
[2016-11-05] MEDS ORDERED: PROPOFOL/EMULSION 500 MG/50 ML BOTTLE IV ONE (09:41)
[2016-11-05] MEDS ORDERED: KETAMINE 100 MG/10 ML SYR ONE (10:08)
[2016-11-05] MEDS ORDERED: ONDANSETRON 4 MG/2 ML VIAL IVP PRN ×2 (10:13→11:52)
[2016-11-05] MEDS ORDERED: DEXAMETHASONE 4 MG/ML VIAL IVP PRN (10:13)
[2016-11-05] MEDS ORDERED: ENALAPRILAT DIHYDRATE 1.25 MG/ML VIAL IVP PRN (10:13)
[2016-11-05] MEDS ORDERED: OXYCODONE/APAP 5/325 TAB PO PRN (10:13)
[2016-11-05] MEDS ORDERED: MEPERIDINE 25 MG/ML SYR IVP PRN (10:13)
[2016-11-05] MEDS ORDERED: LR 500 ML IV PRN (10:13)
[2016-11-05] MEDS ORDERED: METOCLOPRAMIDE 10 MG/2 ML VIAL IVP PRN ×2 (10:13→11:52)
[2016-11-05] MEDS ORDERED: NALOXONE HCL 0.4 MG/ML INJ IVP PRN (10:13)
[2016-11-05] MEDS ORDERED: LABETALOL HCL 5 MG/ML 20 ML MDV IVP PRN (10:13)
[2016-11-05] MEDS ORDERED: HYDROmorphONE/DILAUDID 1 MG/ML SYR IVP PRN (10:13)
[2016-11-05] MEDS ORDERED: ACETAMINOPHEN 500 MG TAB PO PRN (10:13)
[2016-11-05] MEDS ORDERED: PROMETHAZINE HCL 25 MG/ML INJ IVP PRN ×2 (10:13→11:52)
--- NOTE | 2016-11-05 11:38 | POSTOPPROG ---
Post Op Note Date of Operation: 11/05/16 Surgeon: Sherwin Han Lead Nuclear Medicine Technologist: Dima/Gabriele Anesthesiologist: Jolanta Anesthesia: IV Sedation, Spinal Post-op Diagnosis: R hip arthritis Procedure: R ZOË Inf/Abcess present in the surg proc area at time of surgery?: No EBL: 100-500
[2016-11-05] MEDS ORDERED: NS 500 ML IV PRN (11:52)
[2016-11-05] MEDS ORDERED: TEMAZEPAM 15 MG CAP PO PRN (11:52)
[2016-11-05] MEDS ORDERED: MAGNESIUM HYDROXIDE 30 ML UDCUP PO PRN (11:52)
[2016-11-05] MEDS ORDERED: BISACODYL 10 MG SUPP PR PRN (11:52)
[2016-11-05] MEDS ORDERED: LACTULOSE 20 GM/30 ML UDCUP PO PRN (11:52)
[2016-11-05] MEDS ORDERED: diphenhydrAMINE 25 MG CAP PO PRN (11:52)
[2016-11-05] MEDS ORDERED: ONDANSETRON DISINTEGRATING 4 MG TAB PO PRN (11:52)
[2016-11-05] MEDS ORDERED: CYCLOBENZAPRINE 10 MG TAB PO PRN (11:52)
[2016-11-05] MEDS ORDERED: POLYETHYLENE GLYCOL 3350 17 GM PKT PO PRN (11:52)
[2016-11-05] MEDS ORDERED: PHARMACY PAIN CONSULT 1 EA MISC PRN (11:52)
[2016-11-05] MEDS ORDERED: PROMETHAZINE HCL 25 MG SUPPR PR PRN (11:52)
[2016-11-05] MEDS ORDERED: KETOROLAC 30 MG/1 ML SDV IVP PRN (11:52)
[2016-11-05] MEDS ORDERED: DIPHENOXYLATE/ATROPINE LOMOTIL 1 TAB PO PRN (11:52)
[2016-11-05] MEDS ORDERED: LR 1,000 ML IV SCH (12:00)
[2016-11-05] MEDS: fentaNYL 100 MCG/2 ML INJ IVP PRN ×3 (12:08→12:33)
[2016-11-05] MEDS ORDERED: HYDROmorphONE/DILAUDID 2 MG/ML INJ ONE (12:22)
[2016-11-05] MEDS ORDERED: LABETALOL HCL 50 MG/10 ML SYR ONE (12:23)
--- NOTE | 2016-11-05 13:30 | GOP ---
[f rep st] OPERATIVE REPORT DATE OF OPERATION: 11/05/2016 SURGEON: Sherwin Han MD SUBSTATION ELECTRICIAN: Lorenzo Ch PA-C and Jose David Suazo CFA. ANESTHESIA: Combination of Marcaine, spinal, and IV sedation. ANESTHESIOLOGIST: By Andrew Stover MD. PREOPERATIVE DIAGNOSIS: Right hip severe degenerative arthritis. POSTOPERATIVE DIAGNOSIS: Right hip severe degenerative arthritis. PROCEDURE PERFORMED: 11/05/2016, a right total hip arthroplasty, ceramic femoral head on highly crop specialist ss-linked polyethylene cup liner. FINDINGS: DESCRIPTION OF PROCEDURE: The patient was given 2 g of IV Ancef preoperatively within 60 minutes of surgery. She also received IV tranexamic acid at a dose of 20 mg/kg. She was placed on the operat ing room table and given spinal anesthesia with Marcaine by Dr. Stover. She was then placed supine a nd given IV sedation. A Madsen catheter was not used. She wore a BHAVIK stocking and SCD on the nonope rative leg. She was rolled to the left lateral decubitus position. The position was secured with t he pegboard table attachment. I was careful to lock her pelvis in a rigid vertical position. Her p erineum was isolated with plastic adhesive drapes. The right hip and right lower extremity were pre pped with ChloraPrep. They were draped free using sterile sheets, stockinette, and Teresaban plastic dr zhu. The [employer] Organization time-out was performed to verify the correct surgical side and the cor rect patient identity. The [place] time-out was also performed. I made a 4-5 inch straight, oblique posterolateral skin incision. Subcutaneous tissues were sharply divided, and hemostasis was obtained using electrocautery. Her fascia tamar was identified and spli t along the axis of its fibers. I then curved posteriorly and proximally and split the fascia of th e gluteus phu and bluntly split the muscle fibers in line with their orientation. I was careful to extend into the tensor fascia tamar only a short distance. The Charnley self-retaining retractor was inserted. Her sciatic nerve was located, partially exposed, and protected throughout the proce dure. The external rotators, and the posterior hip capsule were divided as separate layers at the b ase of the femoral neck, tagged, and reflected posteriorly. A smooth 8-inch Steinmann pin was inser bhavik vertically into the ilium, superior to the acetabulum. An 8-inch drill bit was inserted vertica lly into the greater trochanter and parallel to the first pin. The distance between the 2 was measu red for leg length reference. The femoral head was dislocated posteriorly. Severe degenerative jaylin nges were present on the femoral head. Her femoral neck was osteotomized at the appropriate level a nd inclination. She had a lot of osteophytes around the periphery of her femoral neck distal to the osteotomy. These were trimmed with a rongeur. I was careful to preserve all the posterior capsule and most of the anterior capsule. Her remnant w as absent, and she had extensive peripheral osteophytes around the rim of her acetabulum. I prepared the femur first. This allowed me to legal job titles the amount of natural femoral neck anteversion . This in turn, allowed me to later determine the correct amount of cup anteversion. She had appro ximately 10 degrees of natural femoral neck anteversion. Her canal was opened laterally with a box chisel. I reamed and broached sequentially up to a size 9. I used a size 9 broach as a trial stem. I was careful to lateralize adequately. Appropriate retractors were inserted to expose her acetabulum. The acetabulum was reamed sequential ly up to 53 mm. I selected a 54 mm Bergheim, solid-backed hemispherical shell. This was tapped secu rely into place in the proper degree of inclination and anteversion. She had extensive hypertrophic osteophyte formation around the rim of her acetabulum, particularly anteriorly and anteriorly and i nferiorly. These were removed with an osteotome and rongeur. I used a transverse acetabular ligame nt remnant and other acetabular bony landmarks to help me properly orient the cup. I inserted a scr ew-in metal dome hole plug. I performed a series of trial reductions to determine length and stabil ity. I concluded that she needed the 10-degree lipped liner. The Bergheim, highly cross-linked, 10- degree lipped liner was inserted and tapped securely into place. I dialed the 10-degree overhang so that it was directly posterior. I took an intraoperative x-ray to determine position of the components, sizing and leg length. It w as difficult to get a good quality image. As best I could tell, the leg lengths were equal. The po sition and sizing of her components were excellent. I chose a Bergheim Secur-Fit Max stem in a size 9 with standard offset. This was inserted press-fit and was very tight. I did 1 final trial reduct ion and confirmed that the -2.5 mm neck length with a 36 mm head was the proper combination. The [facility] [employer] Delta ceramic head with an outside diameter of 36 mm and a neck length of -2.5 mm was t apped securely onto the clean trunnion. The acetabulum was irrigated and cleaned, and the hip was r educed 1 final time. She had excellent anterior and posterior stability and appropriate length. 40 mL of the joint anesthetic cocktail were injected into the capsule, the deep musculature, and sub cutaneous tissues around the skin edges. The joint was thoroughly irrigated 1 final time with a dil [place] Betadine solution. Her sciatic nerve was reinspected and looked unharmed. The external rotators and the posterior hip capsule were repaired in separate layers with #2 FiberWi re sutures through drill holes in the greater trochanter. This provided a strong posterior capsular and external rotator repair. The fascia tamar was closed first with 2 [id number] #2 FiberWire sutures, followed by a running #2 barbed Ethicon StrataFix PDO suture. The subcutaneous tissues wer e closed with a running 0 barbed Ethicon StrataFix Monoderm suture. The skin was closed with a runn ing 3-0 barbed Ethicon StrataFix Monoderm subcuticular suture. The skin edges were reapproximated a nd sealed with Dermabond glue. The wound was covered with a strip of Telfa, and everything was held in place with a piece of clear plastic Tegaderm. A long-leg BHAVIK stocking and SCD were applied to her right lower extremity. She wore a stocking and SCD on the opposite leg during the procedure. An abduction pillow was placed between her knees. Klaudia richardson was awakened from anesthesia and rolled to the supine position [facility] She was ta robert to PACU in satisfactory condition. There were no recognized intraoperative complications. The estimated blood loss was about 300 mL. The sponge and needle count were correct on 2 occasions. I used a Bergheim Tritanium hemispherical solid-backed acetabular shell with an outside diameter of 5 4 mm. The liner was a Bergheim X3 10-degree lipped, highly cross-linked liner with an inside diamete r of 36 mm. I inserted a screw-in metal dome hole plug in the shell. The femoral component was a p ress-fit Terrence standard offset Secur-Fit Max stem in a size 9. The femoral head was a Terrence Bio lox Delta ceramic head with a -2.5 mm neck length and a 36 mm outside diameter. Ruiz Ch and Jose David Suazo acted as surgical assistants. Their assistance was a medical tushar bee. Copy requested to: Dr. Aaron Burris /[id number]/MODL
[2016-11-05] MEDS: ACETAMINOPHEN 325 MG TAB PO SCH ×2 (14:43→17:20)
[2016-11-05] MEDS: ceFAZolin 2 GM/DEXTROSE 100 ML IV SCH ×2 (15:01→20:53)
[2016-11-05] MEDS: TRANEXAMIC ACID 650 MG TAB PO SCH (17:19)
[2016-11-05] MEDS: oxyCODONE IR 5 MG TAB PO PRN (17:20)
[2016-11-05] MEDS: SENNOSIDES/DOCUSATE SODIUM TAB PO SCH (20:50)
[2016-11-05] MEDS: ASPIRIN 325 MG TAB PO SCH (20:52)
[2016-11-05] MEDS: FAMOTIDINE 20 MG TAB PO SCH (20:52)
[2016-11-05] MEDS: traMADol 50 MG TAB PO PRN (21:15)
[2016-11-06] MEDS: ACETAMINOPHEN 325 MG TAB PO SCH ×3 (00:03→11:26)
[2016-11-06] MEDS: TRANEXAMIC ACID 650 MG TAB PO SCH ×2 (00:04→08:21)
[2016-11-06] MEDS: oxyCODONE IR 5 MG TAB PO PRN ×2 (00:04→08:20)
[2016-11-06 05:09] VITALS: RESP 15; TEMP 98.6
[2016-11-06 05:10] LABS: HEMATOCRIT 32.5 % (38.0-47.0)
[2016-11-06] MEDS: traMADol 50 MG TAB PO PRN (05:17)
--- NOTE | 2016-11-06 07:27 | SOAPPROG ---
SOAP Progress Note Assessment/Plan: Assessment: Afebrile. Was nauseated and weak yesterday from anesthesia. Feels much better today. Up and walking in room. No hip pain. H/H is good. Wound is dry. Films look good. Leg lengths equal. Plan:Up with PT. Home later today. 11/06/16 07:25 Objective: Vital Signs Temp Pulse Resp BP Pulse Ox 37.0 C 61 15 129/66 H 91 L 11/06/16 04:00 11/06/16 04:00 11/06/16 04:00 11/06/16 04:00 11/06/16 04:00 Laboratory Results 11/06/16 05:00 11/05/16 11/06/16 11/07/16 05:59 05:59 05:59 Intake Total 1825 Output Total 1475 Balance 350 ICD10 Worksheet Patient Problems: Problems Problem Status Onset Osteoarthritis of left hip Acute Syncope Acute
--- NOTE | 2016-11-06 08:12 | GDS ---
[f rep st] DISCHARGE SUMMARY ADMISSION DIAGNOSIS: Right hip arthritis. DISCHARGE DIAGNOSIS: Right hip arthritis. OPERATION PERFORMED: 11/05/2016, right total hip arthroplasty, ceramic femoral head on highly cross -linked polyethylene cup liner. POSTOPERATIVE COMPLICATIONS: None. CONDITION ON DISCHARGE: Improved. DESCRIPTION OF HOSPITAL COURSE: The patient was admitted to the hospital the morning of surgery. H er admission CBC was normal. The same day under a combination of Marcaine, spinal, and IV sedation, she underwent a right total hip arthroplasty. Postoperatively, she was treated with multimodal DVT prophylaxis including rapid mobilization and aspirin. On the first postoperative day, her hemoglob in and hematocrit were 11.0 and 32.5. She was seen by Physical Therapy and made good progress with ambulation and stairs. On the day of surgery, she had moderate difficulty with nausea, vomiting, an d weakness related to her anesthesia. That resolved spontaneously overnight. By the time of discha rge, she was comfortable, afebrile, and independent walking with her walker. DISPOSITION: Patient is discharged to her home. She will go to outpatient physical therapy. Use a n abduction pillow in bed for 3 weeks. Use BHAVIK stockings for 1 week. Continue aspirin 325 mg p.o. daily for 21 days. She has prescriptions for oxycodone and tramadol for pain control. I will see h er back in the office on 11/27/2016. If there are any problems, she is to call me at the office. Copy requested to: Dr. Aaron Burris /[id number]/MODL
[2016-11-06] MEDS: SENNOSIDES/DOCUSATE SODIUM TAB PO SCH (08:21)
[2016-11-06] MEDS: ASPIRIN 325 MG TAB PO SCH (08:21)
[2016-11-06] MEDS: FAMOTIDINE 20 MG TAB PO SCH (08:21)
[2016-11-06 08:26] VITALS: BP 111/55; PULSE 66; O2SAT 94
[2016-11-06] MEDS ORDERED: FERROUS SULFATE 140 MG TAB.ER PO SCH (09:00)
--- NOTE | 2016-11-06 09:42 | POSTANESTH ---
Post Anesthetic Evaluation Cardiovascular Status: Normal, Stable, Similar to Pre-Op Cond Respiratory Status: Normal, Stable, Similar to Pre-op Cond. Level of Consciousness/Mental Status: Can Participate in Eval, Alert and Oriented Pain Control: Adequate, Prn Tx Ordered Nausea/Vomiting Control: Adequate, Prn Tx Ordered Complications Possibly Related to Anesthesia: None Noted Notes: tSAB is recedilng, pain lebel 5 on arrival in PACU.
[2016-11-07] MEDS ORDERED: FAMOTIDINE 20 MG TAB PO ONE (06:00)
[2016-11-07] MEDS ORDERED: CEFAZOLIN 2 GM/DEXTR 100 ML IV ONE (06:00)
[2016-11-07] MEDS ORDERED: ACETAMINOPHEN 325 MG TAB PO ONE (06:00)
[2016-11-07] MEDS ORDERED: DEXAMETHASONE 4 MG/ML VIAL IVP ONE (06:00)
== END 2016-11-06 12:12 | disposition home or self-care (01) | DRG 470 ==
LOC: F3E 07:48 → F3N 10:47
PROVIDERS: ADMIT Orthopaedic Surgery; ATTEND Orthopaedic Surgery
PROC: 0SR904Z Replacement of Right Hip Joint with Ceramic on Polyethylene Synthetic Substitute, Open Approach (ICD-10-PCS; principal; 2016-11-05 09:45)
DX: M16.11 Unilateral primary osteoarthritis, right hip (principal); Z96.642 Presence of left artificial hip joint
CPT/HCPCS: 97161-GP; 97165-GO; G8978-GP-CI; G8979-GP-CI; G8980-GP-CI; G8987-GO-CI; G8988-GO-CI; G8989-GO-CI; J0171; J0690; J1100; J1170; J1885; J2704; J2795; J3010

== ENCOUNTER 2017-04-10 22:48 | Emergency (ER) | payer OTHER ==
[2017-04-10] MEDS ORDERED: TDAP ADULT 0.5 ML INJ (BOOSTRIX) IM ONE (22:56)
[2017-04-10 22:57] VITALS: BP 158/79
--- NOTE | 2017-04-10 23:31 | EDPHY ---
H & P Stated Complaint: lac to r finger Time Seen by Provider: 04/10/17 23:31 HPI/ROS: HPI: This 76 presents with Chief Complaint: Right index finger laceration Location: Right index finger Quality: Laceration Duration: Prior to arrival Signs and Symptoms: + bleeding, no radiation, no numbness, no weakness, no tingling, no decreased range of motion, no swelling, + pain Timing: Sudden Severity: Moderate Context: Patient is right-hand dominant and had just returned home from a football game when she was trying to close the umbrella and accidentally cut her right index finger on the metal support pieces. She noted that there was mild pain and bleeding that stopped with direct pressure. He is unsure of her last tetanus shot. She denies any paresthesias, skin color changes. She has minimal pain at this time. Modifying Factors: Direct pressure Comment: ROS: see HPI Constitutional: No fever, no chills, no weight loss Eyes: No blurred vision Respiratory: No shortness of breath, no cough Cardiovascular: No chest pain Gastrointestinal: No nausea, no vomiting no diarrhea Genitourinary: No dysuria Extremities: No myalgias Neurologic: No weakness, no numbness Skin: No rashes Hematologic: No bruising, no bleeding MEDICAL/SURGICAL/SOCIAL HISTORY: Medical/Surgical history: PAC's resolved, hip surgery l, cholecystectomy, Social history: CONSTITUTIONAL: Pleasant elderly white female, at bedside, awake and alert, no obvious distress HEENT: Atraumatic and normocephalic, PERRL, EOMI. Tympanic membranes clear. Oropharynx clear, no exudate and moist pink mucosa. Airway patent. No lymphadenopathy. No meningismus. Cardiovascular: Normal S1/S2, regular rate, regular rhythm, without murmur rub or gallop. PULMONARY/CHEST: Symmetrical and nontender. Clear to auscultation bilaterally. Good air movement. No accessory muscle usage. ABDOMEN: Soft, nondistended, nontender, no rebound, no guarding, no peritoneal signs, no masses or organomegaly. No CVAT. EXTREMITIES: 2/2 radial pulses, right index finger 1.5 cm horizontal superficial laceration between the DIP and PIP joint. DIP/PIP flexion extension intact. Good light touch sensation. strength 5/5, no deformities, no clubbing, no cyanosis or edema. NEUROLOGICAL: no focal neuro deficits. GCS 15. SKIN: Warm and dry, no erythema. no rash. Good capillary refill. Source: Patient, Family () - Personal History Current Tetanus/Diphtheria Vaccine: Unsure Current Tetanus Diphtheria and Acellular Pertussis (TDAP): Unsure - Medical/Surgical History Hx Asthma: No Hx Chronic Respiratory Disease: No Hx Diabetes: No Hx Cardiac Disease: No Hx Renal Disease: No Hx Cirrhosis: No Hx Alcoholism: No Hx HIV/AIDS: No Hx Splenectomy or Spleen Trauma: No Other PMH: PAC's resolved, hip surgery l, cholecystectomy, - Social History Smoking Status: Never smoked Constitutional: Initial Vital Signs Temperature (C) 36.4 C 04/10/17 22:52 Heart Rate 85 04/10/17 22:52 Respiratory Rate 18 04/10/17 22:52 Blood Pressure 158/79 H 04/10/17 22:52 O2 Sat (%) 94 04/10/17 22:52 O2 Delivery Mode Room Air Allergies/Adverse Reactions: Sulfa (Sulfonamide Antibiotics) Allergy (Severe, Verified 08/19/16 14:06) Anaphylaxis walnut Allergy (Severe, Verified 08/19/16 14:06) Anaphylaxis Home Medications: Medication Instructions Recorded Cholecalciferol Vit D3 [Vitamin D3 2,000 units PO DAILY 08/19/16 2000 units tab (OTC)] Cyanocobalamin [Vitamin B12 (*)] 1,000 mcg PO DAILY 08/19/16 Herbals/Supplements -Info Only 1 ea PO DAILY 10/17/16 Medical Decision Making Procedures: Procedure: Laceration repair. Verbal consent was obtained from the patient. The 1.5 cm superficial horizontal laceration on the left index finger was anesthetized in the usual fashion. The wound was irrigated, draped and explored to its base with a gloved finger. There were no deep structures involved. No tendon injury was identified. The wound was repaired with #4, 6-0 Prolene in simple interrupted pattern. Good hemostasis was achieved and patient tolerated procedure well. The procedure was performed by myself. ED Course/Re-evaluation: Tetanus booster given Wound care and laceration repair provided No signs of neurovascular compromise/tenting of skin/compartment syndrome/ extremities and joints examined above and below area of concern and are neurovascularly intact. Laceration repaired with 4 nonabsorbable sutures Martin Estrella placed. Differential Diagnosis: Differential diagnosis includes but is not limited to laceration, nerve injury, tendon injury, contusion. - Data Points Medications Given: Discontinued Medications Diphtheria/Tetanus/Acell Pertussis (Boostrix) 0.5 ml IM .ONCE ONE Stop: 04/10/17 22:57 Last Admin: 04/10/17 23:06 Dose: 0.5 ml Departure - Departure Disposition: Home, Routine, Self-Care Clinical Impression: Laceration of right index finger w/o foreign body w/o damage to nail Qualifiers: Encounter type: initial encounter Qualified Code(s): S61.210A - Laceration without foreign body of right index finger without damage to nail, initial encounter Condition: Good Instructions: Finger Laceration (ED) Additional Instructions: Keep the dressing in place for 48 hours. After 48 hours, you may remove the dressing; wash the site daily with mild soap and water; then pat dry. Apply ice for 30 minutes at a time; 2-3 times per day for the next 1-2 days. Please return to the emergency room in 7-10 days to have your sutures removed. Referrals: Andrea Dodd MD [Medical Doctor] - As per Instructions
[2017-04-11 00:09] VITALS: PULSE 82; RESP 16; TEMP 97.9; O2SAT 96
== END 2017-04-11 00:08 | disposition home or self-care (01) ==
PROC: 0HQGXZZ Repair Left Hand Skin, External Approach (ICD-10-PCS; principal; 2017-04-10)
DX: S61.210A Laceration without foreign body of right index finger without damage to nail, initial encounter (principal); Z23 Encounter for immunization; W26.8XXA Contact with other sharp object(s), not elsewhere classified, initial encounter; Y99.8 Other external cause status; Y93.61 Activity, american tackle football

== ENCOUNTER 2018-06-26 20:39 | Emergency (ER) | payer OTHER ==
[2018-06-26] MEDS ORDERED: PHENYLEPHRINE 0.25% NASAL 15 ML SPRAY ONE (21:09)
[2018-06-26] MEDS ORDERED: PHENYLEPHRINE 0.25% NASAL 15 ML SPRAY EACHNARE ONE (21:10)
[2018-06-26] MEDS ORDERED: SILVER NITRATE APPLICATOR 1 APPL TP ONE (21:29)
--- NOTE | 2018-06-26 21:50 | EDPHY ---
H & P Stated Complaint: NOSE BLEED, LARGE CLOTS X 1 HR Time Seen by Provider: 06/26/18 21:05 HPI/ROS: Chief complaint: Nose bleed History of present illness: This is a 77-year-old female who presents to the emergency department for a nose bleed. She reports the onset of symptoms approximately an hour ago. She has been bleeding from her left nostril with passage of clot material. She does states she has been slightly sick lately, her primary care doctor started her on penicillin for a sinus infection. She does not have a history of nose bleeds. She denies systemic symptoms such as dizziness, lightheadedness or fatigue. She does not take any blood thinning medication at this time. No report of other abnormal bleeding such as bleeding from the gums or easy bruising. - Personal History Current Tetanus Diphtheria and Acellular Pertussis (TDAP): Yes - Medical/Surgical History Hx Asthma: No Hx Chronic Respiratory Disease: No Hx Diabetes: No Hx Cardiac Disease: No Hx Renal Disease: No Hx Cirrhosis: No Hx Alcoholism: No Hx HIV/AIDS: No Hx Splenectomy or Spleen Trauma: No Other PMH: PAC's resolved, hip surgery MARIAH, cholecystectomy, TNA, AJT, MARIAH CATARACTS - Social History Smoking Status: Never smoked - Physical Exam Exam: General: Alert, nontoxic, easily conversant. Eyes: No injection. PERRLA. ENT: Tympanic membranes, external auditory canals, external ears and surrounding soft tissue including over the mastoids are unremarkable. Nasopharynx is not injected. There is active bleeding coming from Kiesselbach' s plexus in the left nostril. Oropharynx is not injected. There is no edema. There is no exudate. There is no asymmetry. The uvula is midline. No elevation of the tongue. There is no hoarseness, no drooling, no trismus, no stridor. Cardiovascular: Regular rate and rhythm. Respiratory: Lungs clear to auscultation bilaterally. Skin: No abnormal bleeding or bruising. Constitutional: Initial Vital Signs Temperature (C) 36.5 C 06/26/18 20:52 Heart Rate 100 06/26/18 20:52 Respiratory Rate 16 06/26/18 20:52 Blood Pressure 167/96 H 06/26/18 20:52 O2 Sat (%) 94 06/26/18 20:52 O2 Delivery Mode Room Air Allergies/Adverse Reactions: Sulfa (Sulfonamide Antibiotics) Allergy (Severe, Verified 08/19/16 14:06) Anaphylaxis walnut Allergy (Severe, Verified 08/19/16 14:06) Anaphylaxis Home Medications: Medication Instructions Recorded Cholecalciferol Vit D3 [Vitamin D3 2,000 units PO DAILY 08/19/16 2000 units tab (OTC)] Cyanocobalamin [Vitamin B12 (*)] 1,000 mcg PO DAILY 08/19/16 Herbals/Supplements -Info Only 1 ea PO DAILY 10/17/16 AMOXICILLIN 06/26/18 Medical Decision Making Procedures: Procedure: Epistaxis control. Verbal consent was obtained. The anterior epistaxis was identified. The patient was treated with Deshawn-Synephrine, silver nitrate and Merocel packing. Following the procedure the patient was re-examined and the bleeding was well controlled. The patient tolerated the procedure well. The procedure was performed by myself. ED Course/Re-evaluation: Patient seen under the supervision of my secondary supervising physician Dr. Ruiz Jay. Patient presents with a nose bleed. No use of blood thinners or history of coagulopathy. An anterior epistaxis is identified, treated and hemostases obtained. She is discharged home. Home care is discussed. She is to follow up with her primary care doctor or an ears Nose and Throat doctor on Thursday for recheck. Strict return precautions are given. The patient voiced understanding and agreement with plan. Differential Diagnosis: Anterior epistaxis, posterior epistaxis, coagulopathy - Data Points Medications Given: Discontinued Medications Phenylephrine HCl (Neosynephrine) 1 spray EACHNARE EDNOW ONE Stop: 06/26/18 21:11 Last Admin: 06/26/18 21:11 Dose: 1 btl Departure - Departure Disposition: Home, Routine, Self-Care Clinical Impression: Acute anterior epistaxis Condition: Good Instructions: Nosebleed (ED) Additional Instructions: Follow-up with your primary care doctor or an Ears Nose and Throat doctor on Thursday for recheck Packing to be removed in 2 days If symptoms worsen or new symptoms develop return to the emergency room for recheck Referrals: Jaclyn Wells MD [Primary Care Provider] - As per Instructions Glenn Gunn MD [Medical Doctor] - As per Instructions
[2018-06-26 22:01] VITALS: BP 145/78
== END 2018-06-26 22:01 | disposition home or self-care (01) ==
PROC: 2Y41X5Z Packing of Nasal Region using Packing Material (ICD-10-PCS; principal; 2018-06-26)
DX: R04.0 Epistaxis (principal)

== ENCOUNTER 2018-09-02 11:54 | Emergency (ER) | payer OTHER ==
[2018-09-02 12:02] VITALS: BP 152/113
--- NOTE | 2018-09-02 12:06 | EDPHY ---
HPI/HX/ROS/PE/MDM Narrative: CHIEF COMPLAINT: Lower left leg pain. HPI: This patient is a 77-year-old female who is s/p bilateral varicose vein surgery with Dr. Crawley one week ago on 07/25/18 and 07/26/18. Yesterday at her followup appointment she was diagnosed with a left upper leg deep vein thrombosis and began Eliquis (she has had two doses). She has been wearing her compression stockings as directed. Yesterday, developed atraumatic pain in the back of her left foot. US was negative for DVT in that area. She went to urgent care and was prescribed Keflex for a possible cellulitis (has taken three doses). Today she complains of increased pain and swelling in her left lower leg, particularly around her ankle. Now, the area is "exquisitely painful constantly " leading to difficulty walking. She denies chest pain or shortness of breath. She denies history of any known clotting disorders. REVIEW OF SYSTEMS: A comprehensive 10 system review of systems is otherwise negative aside from elements mentioned in the history of present illness and medical decision making. PMH: Bilateral hip replacements. SOCIAL HISTORY: . at bedside. 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 PHYSICAL EXAM: General:Patient is alert, in no acute distress. ENT:Eyes are normal to inspection. ENT inspection normal. Neck: Normal inspection. Full range of motion. Respiratory:No respiratory distress. Breath sounds normal bilaterally. Cardiovascular: Regular rate and rhythm. Strong peripheral pulses. Normal cap refill. Abdomen:The abdomen is nontender to palpation. There are no peritoneal signs. There are normal bowel sounds. Back: Normal to inspection. No tenderness to palpation. Skin: Normal color. No rash. Warm and dry. Extremities: Tenderness to Achilles. Pain with foot flexion. Steri strips over bilateral calves at surgical sites. Neuro: Oriented x3. Normal motor function. Normal sensory function. ED Course: 77 y/o female who is s/p bilateral varicose vein surgery one week ago with known LLE thrombosis presents with lower left leg pain and swelling. Plan for US for further evaluation. Plan for x-ray of the left ankle to r/o acute osseous abnormalities. Plan for labs including CBC, chemistries, co-ag panel. [address] Camarena, radiologist. US LLE shows greater saphenous vein thrombosis. No DVT. X-ray of the left ankle is negative for acute osseous abnormalities. Laboratory studies are completely unremarkable. Reassessed patient. Discussed imaging and laboratory results. She is relieved that there is no DVT, no evidence of fracture. She will follow up with her surgeon as planned. Plan to discharge home in good condition. Follow up and return precautions discussed. She and her are comfortable with this plan. MDM: This patient presents with LLE pain in the setting of recent varicose vein procedure and recent diagnosis of heel cellulitis. The described area of cellulitis as defined by the urgent care provider looks normal to me, and it seems odd that the patient would develop cellulitis at this location instead of the numerous skin puncture sites on both legs secondary to the procedure. She has a known superficial thrombosis which is confirmed by US here in the ED, and is already on anticoagulation for this. Her lab work does not support severe infection, nor does her XR. The patient is primarily tender at the insertion of the achilles tendon and distal achilles. I wonder if this might represent an Achilles tendonitis. There are no signs of tendon rupture at this time. - Data Points Imaging Results: Imaging Impressions Extremity Venous Study 09/02/18 12:18 Impression: 1. No evidence of deep vein thrombosis. 2. Occlusion of the greater saphenous vein, possibly related to ablation or superficial thrombophlebitis. Findings discussed with Roque Mooney MD 09/02/2018 at 13:07. Ankle X-Ray 09/02/18 12:21 Impression: No acute osseous findings. Imaging: Discussed imaging studies w/ house calls nurse practitioner Radiologist, I viewed and interpreted images myself Laboratory Results: Laboratory Results 09/02/18 12:30 09/02/18 12:30 09/02/18 09/02/18 09/02/18 12:30 12:30 12:30 WBC 7.76 10^3/uL 10^3/uL (3.80-9.50) RBC 4.23 10^6/uL 10^6/uL (4.18-5.33) Hgb 12.7 g/dL g/dL (12.6-16.3) Hct 38.1 % % (38.0-47.0) MCV 90.1 fL fL (81.5-99.8) MCH 30.0 pg pg (27.9-34.1) MCHC 33.3 g/dL g/dL (32.4-36.7) RDW 14.2 % % (11.5-15.2) Plt Count 189 10^3/uL 10^3/uL (150-400) MPV 10.7 fL fL (8.7-11.7) Neut % (Auto) 70.6 % % (39.3-74.2) Lymph % (Auto) 20.9 % % (15.0-45.0) [place] % (Auto) 6.4 % % (4.5-13.0) Eos % (Auto) 1.4 % % (0.6-7.6) Baso % (Auto) 0.3 % % (0.3-1.7) Nucleat RBC Rel Count 0.0 % % (0.0-0.2) Absolute Neuts (auto) 5.48 10^3/uL 10^3/uL (1.70-6.50) Absolute Lymphs (auto) 1.62 10^3/uL 10^3/uL (1.00-3.00) Absolute Monos (auto) 0.50 10^3/uL 10^3/uL (0.30-0.80) Absolute Eos (auto) 0.11 10^3/uL 10^3/uL (0.03-0.40) Absolute Basos (auto) 0.02 10^3/uL 10^3/uL (0.02-0.10) Absolute Nucleated RBC 0.00 10^3/uL 10^3/uL (0-0.01) Immature Gran % 0.4 % % (0.0-1.1) Immature Gran # 0.03 10^3/uL 10^3/uL (0.00-0.10) PT 13.8 SEC SEC (12.0-15.0) INR 1.10 (0.83-1.16) APTT 33.7 SEC SEC (23.0-38.0) Sodium 137 mEq/L mEq/L (135-145) Potassium 4.0 mEq/L mEq/L (3.5-5.2) Chloride 103 mEq/L mEq/L (97-110) Carbon Dioxide 26 mEq/l mEq/l (22-31) Anion Gap 8 mEq/L mEq/L (6-14) BUN 17 mg/dL mg/dL (7-23) Creatinine 0.7 mg/dL mg/dL (0.6-1.0) Estimated GFR > 60 Glucose 92 mg/dL mg/dL (70-100) Calcium 9.4 mg/dL mg/dL (8.5-10.4) General Time Seen by Provider: 09/02/18 12:03 Initial Vital Signs: Initial Vital Signs Temperature (C) 36.6 C 09/02/18 11:59 Heart Rate 112 H 09/02/18 11:59 Respiratory Rate 16 09/02/18 11:59 Blood Pressure 152/113 H 09/02/18 11:59 O2 Sat (%) 95 09/02/18 11:59 O2 Delivery Mode Room Air Allergies/Adverse Reactions: Sulfa (Sulfonamide Antibiotics) Allergy (Severe, Verified 08/19/16 14:06) Anaphylaxis walnut Allergy (Severe, Verified 08/19/16 14:06) Anaphylaxis Home Medications: Medication Instructions Recorded Cholecalciferol Vit D3 [Vitamin D3 2,000 units PO DAILY 08/19/16 2000 units tab (OTC)] Cyanocobalamin [Vitamin B12 (*)] 1,000 mcg PO DAILY 08/19/16 Herbals/Supplements -Info Only 1 ea PO DAILY 10/17/16 Calcium 09/02/18 Cephalexin 09/02/18 Eliquis 09/02/18 Nortriptyline HCl 09/02/18 Departure - Departure Disposition: Home, Routine, Self-Care Clinical Impression: Acute superficial venous thrombosis of left lower extremity, Leg pain Condition: Good Instructions: Superficial Thrombophlebitis (ED), Leg Pain (ED) Additional Instructions: Follow up with Dr. Crawley in the next 2-3 days. Continue to follow your postoperative instructions as directed. Continue taking your anticoagulants as prescribed. Continue Keflex as prescribed. Return to the emergency department for worsening pain, redness, swelling, or if you develop fever, chest pain, shortness of breath, or other worsening of condition or further concerns. Referrals: Jaclyn Wells MD [Primary Care Provider] - As per Instructions Sai Crawley MD [Medical Doctor] - As per Instructions Report Scribed for: Roque Mooney Report Scribed by: Lexy Landaverde Date of Report: 09/02/18 Time of Report: 12:04 Physician Review and Approval Statement: Portions of this note were transcribed by an ED scribe. I personally performed the history, physical exam, and medical decision making; and confirm the accuracy of the information in the transcribed note.
[2018-09-02 12:39] LABS: PLATELET COUNT 189 10^3/uL (150-400)
[2018-09-02 12:48] LABS: INR 1.1 (0.83-1.16); PROTIME(PATIENT) 13.8 SEC (12.0-15.0)
== END 2018-09-02 13:45 | disposition home or self-care (01) ==
DX: I80.02 Phlebitis and thrombophlebitis of superficial vessels of left lower extremity (principal)